=== PATIENT | female | born 1965 | race Caucasian/White ===

== ENCOUNTER 2020-08-10 05:48 | Inpatient (IN) | payer BC ==
[~2020-08-10] VITALS: Ht 154.9 cm; Wt 91.0 kg
[2020-08-10] MEDS ORDERED: VANCOMYCIN 500 MG ONE (06:29)
[2020-08-10] MEDS ORDERED: LIDOCAINE/PF 0.5% ,50ML ONE (06:29)
[2020-08-10] MEDS ORDERED: BUPIVACAINE/PF 0.25% ONE (06:29)
[2020-08-10] MEDS ORDERED: VANCOMYCIN 1,000 MG ONE (06:30)
[2020-08-10] MEDS ORDERED: EPINEPHRINE 1 MG/ML, 1ML ONE (06:30)
[2020-08-10] MEDS ORDERED: CHLORHEXIDINE 15 ML UDC MM STA (06:32)
[2020-08-10] MEDS ORDERED: LACTATED RINGERS 1,000 ML IV ONE (06:32)
[2020-08-10] MEDS ORDERED: PREG100C49 PO (07:19)
[2020-08-10] MEDS ORDERED: ROSU40TA22 PO (07:19)
[2020-08-10] MEDS ORDERED: TELM20TA7 PO (07:19)
[2020-08-10] MEDS ORDERED: ESTR2TAB PO (07:19)
[2020-08-10] MEDS ORDERED: FENO160T PO (07:19)
[2020-08-10] MEDS ORDERED: SPIR25TA5 PO (07:19)
[2020-08-10] MEDS ORDERED: OXYC1TAB18 PO (07:19)
[2020-08-10] MEDS ORDERED: SERT-237 PO (07:19)
[2020-08-10] MEDS ORDERED: MIDAZOLAM 1 MG/ML, 2ML ONE (07:20)
[2020-08-10] MEDS ORDERED: FENTANYL PF 250 MCG/5ML ONE (07:21)
[2020-08-10] MEDS ORDERED: hydrALAzine 20 MG/ML, 1ML IV PRN (07:30)
[2020-08-10] MEDS ORDERED: HALOPERIDOL 5 MG/ML IV PRN (07:30)
[2020-08-10] MEDS ORDERED: DIPHENHYDRAMINE 50 MG/ML, 1ML IVPush PRN (07:30)
[2020-08-10] MEDS ORDERED: MEPERIDINE/PF 25MG/0.5ML IVPush PRN (07:30)
[2020-08-10] MEDS ORDERED: HYDROmorphone 1 MG/ML, 1ML INJ IVPush PRN (07:30)
[2020-08-10] MEDS ORDERED: LABETALOL 5MG/ML, 20ML IV PRN (07:30)
[2020-08-10] MEDS ORDERED: PROMETHAZINE 25 MG/ML, 1ML IVPush PRN (07:30)
[2020-08-10] MEDS ORDERED: HYDROcodone/APAP 7.5-325MG/15ML UDC PO PRN (07:30)
[2020-08-10] MEDS ORDERED: PHENYLEPHRINE 10 MG/ML ONE (07:52)
[2020-08-10] MEDS ORDERED: VASOPRESSIN 20 UNIT/ML, 1ML ONE (07:52)
[2020-08-10] MEDS ORDERED: ALBUTEROL HFA 90 MCG/SPRAY ONE (08:03)
[2020-08-10] MEDS ORDERED: FENTANYL PF 100 MCG/2ML ONE ×3 (10:15→11:27)
[2020-08-10] MEDS ORDERED: DEXAMETHASONE 4 MG/ML, 1ML ONE (10:16)
[2020-08-10] MEDS ORDERED: PROPOFOL 10 MG/ML, 20ML ONE (10:16)
[2020-08-10] MEDS ORDERED: NEOSTIGMINE 1 MG/ML, 10ML ONE (10:16)
[2020-08-10] MEDS ORDERED: SUCCINYLCHOLINE 20 MG/ML, 10ML ONE (10:16)
[2020-08-10] MEDS ORDERED: GLYCOPYRROLATE 0.2MG/1ML, 5ML ONE (10:16)
[2020-08-10] MEDS ORDERED: ONDANSETRON 2MG/ML, 2ML ONE (10:16)
[2020-08-10] MEDS ORDERED: CEFAZOLIN 1,000 MG ONE (10:16)
[2020-08-10] MEDS ORDERED: THROMBIN 5,000 UNIT VIAL TP ONE (10:21)
[2020-08-10] MEDS ORDERED: PROMETHAZINE 25 MG/ML, 1ML ONE (11:02)
[2020-08-10] MEDS: FENTANYL PF 100 MCG/2ML IV PRN ×4 (11:07→11:37)
[2020-08-10] MEDS ORDERED: OXYcodone 5 MG/5 ML ORAL.SOL UDC ONE (11:27)
[2020-08-10] MEDS ORDERED: METHOCARBAMOL 1,000 MG in DEXTROSE 5% 100 ML IV ONE (11:30)
[2020-08-10] MEDS ORDERED: OXYcodone 5 MG/5 ML ORAL.SOL UDC PO PRN (11:30)
[2020-08-10] MEDS ORDERED: HYDROmorphone 1 MG/ML, 1ML INJ ONE (12:13)
[2020-08-10 12:25] VITALS: BP 109/63
[2020-08-10] MEDS ORDERED: MAGNESIUM HYDROXIDE 8%, 30ML UDC PO PRN (13:00)
[2020-08-10] MEDS ORDERED: METHOCARBAMOL 750 MG in DEXTROSE 5% 100 ML IV SCH (13:00)
[2020-08-10] MEDS ORDERED: METHOCARBAMOL 750 MG TABLET PO SCH (13:00)
[2020-08-10] MEDS ORDERED: SODIUM CHLORIDE 0.9% 1,000ML IV PRN (13:00)
[2020-08-10] MEDS ORDERED: BISACODYL 10 MG SUPP PR PRN (13:00)
[2020-08-10] MEDS: morphine SULFATE 10 MG/ML, 1ML IV PRN ×4 (13:07→21:36)
[2020-08-10] MEDS ORDERED: PROMETHAZINE 25 MG/ML, 1ML IM PRN (13:30)
[2020-08-10] MEDS ORDERED: OXYcodone/APAP 10/325MG TABLET PO PRN (14:00)
[2020-08-10 14:34] VITALS: BP 105/65
[2020-08-10] MEDS: OXYcodone IR 5MG TABLET PO PRN ×2 (15:51→20:06)
[2020-08-10] MEDS: D5%-0.9% NACL+KCL 20MEQ 1,000 ML IV SCH ×2 (15:51→23:00)
[2020-08-10] MEDS: PREGABALIN 100 MG CAPSULE PO SCH ×2 (15:51→20:06)
[2020-08-10] MEDS: CEFAZOLIN PMX 1GM/50ML 50 ML IVPB SCH (15:51)
[2020-08-10] MEDS: METHOCARBAMOL 750 MG in DEXTROSE 5% 100 ML IV SCH (18:36)
[2020-08-10 19:39] VITALS: BP 94/53
[2020-08-10] MEDS: ROSUVASTATIN 20 MG HOMEMEDPO SCH (20:07)
[2020-08-11] VITALS (7 sets, daily range): BP systolic 97–139; BP diastolic 56–85
[2020-08-11] MEDS: OXYcodone IR 5MG TABLET PO PRN ×6 (00:02→19:58)
[2020-08-11] MEDS: CEFAZOLIN PMX 1GM/50ML 50 ML IVPB SCH (00:02)
[2020-08-11] MEDS: METHOCARBAMOL 750 MG in DEXTROSE 5% 100 ML IV SCH ×3 (03:22→19:50)
[2020-08-11] MEDS: ONDANSETRON 2MG/ML, 2ML IV PRN (03:23)
[2020-08-11 05:29] LABS: BASOPHILS # (AUTO) 0.01 x10^3/uL (0-0.1); BASOPHILS % (AUTO) 0 % (0-1); EOSINOPHILS % (AUTO) 0 % (1-7); LYMPHOCYTES # (AUTO) 1.73 x10^3/uL (1-3.4); LYMPHOCYTES % (AUTO) 21 % (22-44); MD NO; MEAN CORPUSCULAR HGB CONC 32.2 g/dL (32.4-35.8); MEAN PLATELET VOLUME 8.1 fL (7.4-10.4); MONOCYTES # (AUTO) 0.65 x10^3/uL (0.2-0.8); MONOCYTES % (AUTO) 8 % (2-9); NEUTROPHILS # (AUTO) 5.73 x10^3/uL (1.8-6.8); NEUTROPHILS % (AUTO) 71 % (42-75); PLATELET COUNT 202 x10^3/uL (130-400); RED BLOOD COUNT 3.67 x10^6/uL (3.82-5.3); RED CELL DISTRIBUTION WIDTH 14.4 % (9.6-15.2)
[2020-08-11 05:32] LABS: ANION GAP 5 mmol/L (5-15); CALCIUM 9.2 mg/dL (8.5-10.1); CHLORIDE 109 mmol/L (98-107); CREATININE 0.84 mg/dL (0.55-1.02)
[2020-08-11] MEDS: SPIRONOLACTONE 25 MG TABLET PO SCH (08:57)
[2020-08-11] MEDS: FENOFIBRATE 145 MG TABLET PO SCH (08:57)
[2020-08-11] MEDS: SERTRALINE 50MG TABLET PO SCH (08:57)
[2020-08-11] MEDS: ESTRADIOL 1 MG TABLET PO SCH (08:57)
[2020-08-11] MEDS: D5%-0.9% NACL+KCL 20MEQ 1,000 ML IV SCH ×2 (08:57→17:42)
[2020-08-11] MEDS: SENNA/DOCUSATE TABLET PO SCH (08:57)
[2020-08-11] MEDS: PREGABALIN 100 MG CAPSULE PO SCH ×3 (08:57→19:50)
[2020-08-11] MEDS: TELMISARTAN 20 MG HOMEMEDPO SCH (08:57)
[2020-08-11] MEDS: morphine SULFATE 10 MG/ML, 1ML IV PRN ×3 (09:56→17:52)
[2020-08-11] MEDS: ROSUVASTATIN 20 MG HOMEMEDPO SCH (19:50)
[2020-08-12 00:36] VITALS: BP 130/70
[2020-08-12] MEDS: HYDROcodone/APAP 5/325 TABLET PO PRN ×3 (00:43→20:59)
[2020-08-12] MEDS: METHOCARBAMOL 750 MG in DEXTROSE 5% 100 ML IV SCH ×2 (04:11→12:14)
[2020-08-12] MEDS: D5%-0.9% NACL+KCL 20MEQ 1,000 ML IV SCH ×2 (05:00→15:00)
[2020-08-12 05:14] LABS: BASOPHILS # (AUTO) 0.03 x10^3/uL (0-0.1); BASOPHILS % (AUTO) 0 % (0-1); EOSINOPHILS # (AUTO) 0.03 x10^3/uL (0-0.4); EOSINOPHILS % (AUTO) 0 % (1-7); LYMPHOCYTES # (AUTO) 1.68 x10^3/uL (1-3.4); LYMPHOCYTES % (AUTO) 21 % (22-44); MD NO; MEAN CORPUSCULAR HEMOGLOBIN 28.1 pg (27.0-34.8); MEAN CORPUSCULAR HGB CONC 32.4 g/dL (32.4-35.8); MEAN PLATELET VOLUME 7.9 fL (7.4-10.4); MONOCYTES # (AUTO) 0.75 x10^3/uL (0.2-0.8); MONOCYTES % (AUTO) 9 % (2-9); NEUTROPHILS # (AUTO) 5.46 x10^3/uL (1.8-6.8); NEUTROPHILS % (AUTO) 69 % (42-75); PLATELET COUNT 189 x10^3/uL (130-400); RED BLOOD COUNT 3.66 x10^6/uL (3.82-5.3); RED CELL DISTRIBUTION WIDTH 14.4 % (9.6-15.2)
[2020-08-12 05:24] LABS: ANION GAP 3 mmol/L (5-15); CALCIUM 9.8 mg/dL (8.5-10.1); CHLORIDE 107 mmol/L (98-107); CREATININE 0.76 mg/dL (0.55-1.02)
[2020-08-12 06:57] VITALS: BP 106/63
[2020-08-12] MEDS: OXYcodone IR 5MG TABLET PO PRN ×3 (07:15→16:08)
[2020-08-12] MEDS: morphine SULFATE 10 MG/ML, 1ML IV PRN ×2 (07:56→16:58)
[2020-08-12] MEDS: ONDANSETRON 2MG/ML, 2ML IV PRN (07:56)
[2020-08-12] MEDS: TELMISARTAN 20 MG HOMEMEDPO SCH (09:00)
[2020-08-12] MEDS: FENOFIBRATE 145 MG TABLET PO SCH (09:13)
[2020-08-12] MEDS: SPIRONOLACTONE 25 MG TABLET PO SCH (09:13)
[2020-08-12] MEDS: PREGABALIN 100 MG CAPSULE PO SCH ×3 (09:13→20:58)
[2020-08-12] MEDS: SERTRALINE 50MG TABLET PO SCH (09:13)
[2020-08-12] MEDS: ESTRADIOL 1 MG TABLET PO SCH (09:14)
[2020-08-12] MEDS: SENNA/DOCUSATE TABLET PO SCH (09:14)
[2020-08-12 14:35] VITALS: BP 118/68
[2020-08-12 19:06] VITALS: BP 99/62
[2020-08-12] MEDS: METHOCARBAMOL 750 MG TABLET PO SCH (20:58)
[2020-08-12] MEDS: ROSUVASTATIN 20 MG HOMEMEDPO SCH (20:58)
[2020-08-13] MEDS: D5%-0.9% NACL+KCL 20MEQ 1,000 ML IV SCH ×3 (00:37→20:39)
[2020-08-13 01:54] VITALS: BP 102/57
[2020-08-13] MEDS: OXYcodone IR 5MG TABLET PO PRN ×5 (02:14→19:30)
[2020-08-13] MEDS: METHOCARBAMOL 750 MG TABLET PO SCH ×3 (04:15→19:30)
[2020-08-13 06:48] VITALS: BP 102/59
[2020-08-13] MEDS: SERTRALINE 50MG TABLET PO SCH (08:08)
[2020-08-13] MEDS: SENNA/DOCUSATE TABLET PO SCH (08:08)
[2020-08-13] MEDS: PREGABALIN 100 MG CAPSULE PO SCH ×3 (08:09→20:47)
[2020-08-13] MEDS: SPIRONOLACTONE 25 MG TABLET PO SCH (08:09)
[2020-08-13] MEDS: FENOFIBRATE 145 MG TABLET PO SCH (08:09)
[2020-08-13] MEDS: ESTRADIOL 1 MG TABLET PO SCH (08:09)
[2020-08-13] MEDS: TELMISARTAN 20 MG HOMEMEDPO SCH (08:09)
[2020-08-13 13:49] VITALS: BP 95/61
[2020-08-13 20:30] VITALS: BP 98/61
[2020-08-13] MEDS: ROSUVASTATIN 20 MG HOMEMEDPO SCH (20:46)
[2020-08-14] MEDS: OXYcodone IR 5MG TABLET PO PRN ×3 (00:44→13:55)
[2020-08-14 00:51] VITALS: BP 104/60
[2020-08-14] MEDS: METHOCARBAMOL 750 MG TABLET PO SCH ×2 (04:06→11:36)
[2020-08-14 06:55] VITALS: BP 106/69
[2020-08-14] MEDS: D5%-0.9% NACL+KCL 20MEQ 1,000 ML IV SCH (07:00)
[2020-08-14] MEDS: ESTRADIOL 1 MG TABLET PO SCH (08:27)
[2020-08-14] MEDS: SERTRALINE 50MG TABLET PO SCH (08:27)
[2020-08-14] MEDS: SENNA/DOCUSATE TABLET PO SCH (08:27)
[2020-08-14] MEDS: TELMISARTAN 20 MG HOMEMEDPO SCH (08:28)
[2020-08-14] MEDS: FENOFIBRATE 145 MG TABLET PO SCH (08:28)
[2020-08-14] MEDS: SPIRONOLACTONE 25 MG TABLET PO SCH (08:28)
[2020-08-14] MEDS: PREGABALIN 100 MG CAPSULE PO SCH (08:28)
[2020-08-14] MEDS ORDERED: METH750T2 PO (11:59)
[2020-08-14] MEDS ORDERED: OXYC-307 PO (12:21)
[2020-08-14 13:58] VITALS: BP 97/63
== END 2020-08-14 15:30 | disposition home or self-care (01) | DRG 460 ==
LOC: ORIP 05:48 → 4NE 12:15 → DCLOUNGE 08-14 14:11
PROVIDERS: ADMIT Orthopaedic Surgery Orthopaedic Surgery of the Spine; ATTEND Orthopaedic Surgery Orthopaedic Surgery of the Spine
PROC: 0SG00K0 Fusion of Lumbar Vertebral Joint with Nonautologous Tissue Substitute, Anterior Approach, Anterior Column, Open Approach (ICD-10-PCS; 2020-08-10)
PROC: 0SG00A0 Fusion of Lumbar Vertebral Joint with Interbody Fusion Device, Anterior Approach, Anterior Column, Open Approach (ICD-10-PCS; principal; 2020-08-10 07:30)
DX: M47.896 Other spondylosis, lumbar region (principal); Z03.818 Encounter for observation for suspected exposure to other biological agents ruled out
CPT/HCPCS: 36415; 72100; 72110; 80048; 85025; 87635; C1713; G0378; J0171; J0690; J1100; J1170; J2001; J2250; J2405; J2550; J2704; J2710; J3010; J3370; J3490; C1760; C1762; C1889; J0330; J2270; J2370; J2800; J3480; J7030; J7120

== ENCOUNTER 2021-05-10 05:38 | Inpatient (IN) | payer BC ==
[~2021-05-10] VITALS: Ht 154.9 cm; Wt 100.1 kg
[~2021-05-10 05:38] MED LIST: ESTR2TAB PO; FENO160T PO; METH-640 PO; OXYC-380 PO; OXYC1TAB18 PO; PREG100C49 PO; ROSU40TA22 PO; SERT-237 PO; SPIR25TA5 PO; TELM20TA7 PO
[2021-05-10] MEDS ORDERED: CHLORHEXIDINE 15 ML UDC ONE (06:42)
[2021-05-10] MEDS ORDERED: LIDOCAINE-MPF 1%, 2ML ONE (06:42)
[2021-05-10] MEDS ORDERED: CHLORHEXIDINE 15 ML UDC PO ONE (07:00)
[2021-05-10] MEDS ORDERED: PLEASE ENTER HEIGHT AND WEIGHT MC SCH (07:00)
[2021-05-10] MEDS ORDERED: LACTATED RINGERS 1,000 ML IV SCH (07:00)
[2021-05-10] MEDS ORDERED: LIDOCAINE-MPF 1%, 2ML INFIL ONE (07:00)
[2021-05-10] MEDS ORDERED: BUPIVACAINE/PF 0.5% ONE (07:07)
[2021-05-10] MEDS ORDERED: FENTANYL PF 100 MCG/2ML ONE ×6 (07:07→10:17)
[2021-05-10] MEDS ORDERED: BACITRACIN 50,000 UNIT ONE (07:08)
[2021-05-10] MEDS ORDERED: EPINEPHRINE 1 MG/ML, 1ML ONE (07:08)
[2021-05-10] MEDS ORDERED: morphine SULFATE/PF 0.5 MG/ML, 10ML ONE (07:08)
[2021-05-10] MEDS ORDERED: VANCOMYCIN 1,000 MG ONE (07:08)
[2021-05-10] MEDS ORDERED: LIDOCAINE/PF 1%, 30ML ONE (07:08)
[2021-05-10] MEDS ORDERED: ROSU20TA2 PO (07:20)
[2021-05-10] MEDS ORDERED: PREG150C PO (07:20)
[2021-05-10] MEDS ORDERED: METO5TAB5 PO (07:22)
[2021-05-10] MEDS ORDERED: CELE200C PO (07:22)
[2021-05-10] MEDS ORDERED: SUMA25TA3 PO (07:22)
[2021-05-10] MEDS ORDERED: TORS20TA2 PO (07:22)
[2021-05-10] MEDS ORDERED: OMEP-110 PO (07:22)
[2021-05-10] MEDS ORDERED: HYDR-826 PO (07:22)
[2021-05-10] MEDS ORDERED: CHOL10003 PO (07:22)
[2021-05-10] MEDS ORDERED: MIDAZOLAM 1 MG/ML, 2ML ONE (07:23)
[2021-05-10] MEDS ORDERED: PROPOFOL 50 ML ONE (07:30)
[2021-05-10] MEDS ORDERED: ONDANSETRON 2MG/ML, 2ML ONE (07:46)
[2021-05-10] MEDS ORDERED: PHENYLEPHRINE 10 MG/ML ONE (07:46)
[2021-05-10] MEDS ORDERED: CEFAZOLIN 1,000 MG ONE (07:46)
[2021-05-10] MEDS ORDERED: DEXAMETHASONE 4 MG/ML, 1ML ONE (07:46)
[2021-05-10] MEDS ORDERED: PROPOFOL 10 MG/ML, 20ML ONE (07:46)
[2021-05-10] MEDS ORDERED: SUGAMMADEX 200 MG/2 ML IVPush ONE (07:46)
[2021-05-10] MEDS ORDERED: SUCCINYLCHOLINE 20 MG/ML, 10ML ONE (07:46)
[2021-05-10] MEDS ORDERED: EPHEDRINE 50 MG/ML, 1ML ONE (07:46)
[2021-05-10] MEDS ORDERED: HYDROmorphone 1 MG/ML, 1ML INJ IVPush PRN (09:00)
[2021-05-10] MEDS ORDERED: LORazepam 2 MG/ML, 1ML IVPush PRN (09:00)
[2021-05-10] MEDS ORDERED: MIDAZOLAM 1 MG/ML, 2ML IV PRN (09:00)
[2021-05-10] MEDS ORDERED: FENTANYL PF 100 MCG/2ML IV PRN (09:00)
[2021-05-10] MEDS ORDERED: MEPERIDINE/PF 25MG/0.5ML IVPush PRN (09:00)
[2021-05-10] MEDS ORDERED: ACETAMINOPHEN 325 MG TABLET PO PRN (09:00)
[2021-05-10] MEDS ORDERED: ALBUTEROL SULFATE 2.5 MG/3 ML NPPB PRN (09:00)
[2021-05-10] MEDS ORDERED: PROMETHAZINE 12.5 MG SUPP PR PRN (09:00)
[2021-05-10] MEDS ORDERED: hydrALAzine 20 MG/ML, 1ML IV PRN (09:00)
[2021-05-10] MEDS ORDERED: ALBUTEROL/IPRATROPIUM 2.5MG/0.5MG, 3 ML NPPB PRN (09:00)
[2021-05-10] MEDS ORDERED: METOPROLOL 1 MG/ML, 5ML IV PRN (09:00)
[2021-05-10] MEDS ORDERED: LABETALOL 5MG/ML, 20ML IV PRN ×2 (09:00→15:30)
[2021-05-10] MEDS ORDERED: DIAZEPAM 5 MG/ML, 2ML IVPush PRN (09:00)
[2021-05-10] MEDS ORDERED: PROMETHAZINE 25 MG/ML, 1ML ONE (10:17)
[2021-05-10] MEDS: PROMETHAZINE 25 MG/ML, 1ML IV PRN ×2 (10:19→10:53)
[2021-05-10] MEDS ORDERED: METHOCARBAMOL 1,000 MG in DEXTROSE 5% 100 ML IV ONE (11:00)
[2021-05-10] MEDS ORDERED: PROMETHAZINE 25 MG/ML, 1ML IM PRN (11:00)
[2021-05-10] MEDS ORDERED: SUMATRIPTAN 25 MG TABLET PO PRN (13:30)
[2021-05-10] MEDS ORDERED: DIAZEPAM 5 MG TABLET PO PRN (15:30)
[2021-05-10] MEDS ORDERED: ONDANSETRON 2MG/ML, 2ML IV PRN (15:30)
[2021-05-10] MEDS ORDERED: DIAZEPAM 5 MG/ML, 2ML IV PRN (15:30)
[2021-05-10] MEDS ORDERED: DIPHENHYDRAMINE 50 MG/ML, 1ML IVPush PRN (15:30)
[2021-05-10 16:00] VITALS: BP 99/60
[2021-05-10] MEDS ORDERED: MORPHINE 30MG/30ML PCA.SYR IV PRN (16:00)
[2021-05-10] MEDS: GABAPENTIN 300 MG CAPSULE PO SCH ×2 (16:01→19:43)
[2021-05-10] MEDS: OXYcodone IR 5MG TABLET PO PRN ×2 (16:01→19:43)
[2021-05-10] MEDS: NS + 20MEQ KCL 1,000 ML IV SCH ×2 (16:39→23:53)
[2021-05-10] MEDS: CEFAZOLIN PMX 1GM/50ML 50 ML IVPB SCH ×2 (16:39→23:53)
[2021-05-10 19:15] VITALS: BP 96/62
[2021-05-10] MEDS: PREGABALIN 150 MG CAPSULE PO SCH (19:43)
[2021-05-10] MEDS: OMEPRAZOLE 20 MG CAPSULE.DR PO SCH (19:43)
[2021-05-10] MEDS ORDERED: ATORVASTATIN 80 MG TABLET PO SCH (21:00)
[2021-05-11 00:28] VITALS: BP 94/59
[2021-05-11] MEDS: OXYcodone IR 5MG TABLET PO PRN ×4 (00:35→13:40)
[2021-05-11 03:27] VITALS: BP 93/58
[2021-05-11] MEDS: PREGABALIN 150 MG CAPSULE PO SCH ×2 (05:56→10:14)
[2021-05-11] MEDS: OMEPRAZOLE 20 MG CAPSULE.DR PO SCH (07:29)
[2021-05-11] MEDS: NS + 20MEQ KCL 1,000 ML IV SCH ×2 (07:45→16:00)
[2021-05-11 07:48] VITALS: BP 91/60
[2021-05-11] MEDS ORDERED: SENNA/DOCUSATE TABLET PO SCH (09:00)
[2021-05-11] MEDS ORDERED: SPIRONOLACTONE 25 MG TABLET PO SCH (09:00)
[2021-05-11] MEDS ORDERED: CHOLECALCIFEROL 5,000u TAB PO SCH (09:00)
[2021-05-11] MEDS ORDERED: FENOFIBRATE 145 MG TABLET PO SCH (09:00)
[2021-05-11] MEDS ORDERED: LOSARTAN 25MG TABLET PO SCH (09:00)
[2021-05-11] MEDS ORDERED: PREGABALIN 150 MG CAPSULE PO SCH (09:00)
[2021-05-11] MEDS ORDERED: ESTRADIOL 2 MG TABLET PO SCH (09:00)
[2021-05-11] MEDS ORDERED: METOLAZONE 5 MG TABLET PO SCH (09:00)
[2021-05-11] MEDS ORDERED: TORSEMIDE 20 MG TABLET PO SCH (09:00)
[2021-05-11] MEDS: GABAPENTIN 300 MG CAPSULE PO SCH (10:14)
[2021-05-11] MEDS ORDERED: METOLAZONE 2.5 MG TABLET ONE (10:21)
[2021-05-11] MEDS ORDERED: OXYcodone 5 MG/5 ML ORAL.SOL UDC ONE (10:23)
[2021-05-11 14:09] VITALS: BP 94/64
== END 2021-05-11 16:51 | disposition home or self-care (01) | DRG 460 ==
LOC: ORIP 05:38 → EDSTATUS 09:00 → 4NE 11:32 → DCLOUNGE 05-11 16:30
PROVIDERS: ADMIT Orthopaedic Surgery Orthopaedic Surgery of the Spine; ATTEND Orthopaedic Surgery Orthopaedic Surgery of the Spine
PROC: 0QP004Z Removal of Internal Fixation Device from Lumbar Vertebra, Open Approach (ICD-10-PCS; 2021-05-10)
PROC: 00NY0ZZ Release Lumbar Spinal Cord, Open Approach (ICD-10-PCS; 2021-05-10)
PROC: 0SG00K1 Fusion of Lumbar Vertebral Joint with Nonautologous Tissue Substitute, Posterior Approach, Posterior Column, Open Approach (ICD-10-PCS; principal; 2021-05-10 07:30)
DX: M48.061 Spinal stenosis, lumbar region without neurogenic claudication (principal); E78.00 Pure hypercholesterolemia, unspecified; I11.0 Hypertensive heart disease with heart failure; I50.9 Heart failure, unspecified; E78.5 Hyperlipidemia, unspecified; E11.9 Type 2 diabetes mellitus without complications; Z90.710 Acquired absence of both cervix and uterus; G89.29 Other chronic pain; M19.90 Unspecified osteoarthritis, unspecified site; Z79.899 Other long term (current) drug therapy
CPT/HCPCS: 72100; J3490; S0020; 95938; 95941; G0378; J0171; J0690; J1100; J2250; J2274; J2405; J2550; J2704; J3010; J3370; J3480; C1762; J0330; J2370; J2800; J7120